=== PATIENT | male | born 1965 | race American Indian/Alaskan Native ===

== ENCOUNTER 2016-09-13 21:35 | Emergency (ER) | payer SELFPAY ==
[2016-09-13] MEDS ORDERED: NACL 0.9% 1000 ML 1,000 ML IV ONE (22:08)
--- NOTE | 2016-09-13 22:12 | Emergency Department Report ---
ED General Adult HPI - General Chief complaint: Weakness Stated complaint: WEAK Time Seen by Provider: 09/13/16 21:54 Source: patient, EMS (ems notes not available at time of chart dictation) Limitations: No Limitations - History of Present Illness Initial comments: This is a 51-year-old male. He is previously unknown to me. The patient reports a recent prolonged hospital stay at [place] for what sounds like bacteremia and numerous lower extremity abscesses. He then reports that he spent 30 days at [facility]. He reports that he was discharged yesterday. the patient is brought to the hospital by EMS today for generalized weakness. As per verbal report from EMS, patient had a blood pressure in the 80s. The patient denies headache, neck pain, chest pain, abdominal pain, shortness of breath, hematuria, hematemesis, bright red blood per rectum. He reports that he feels slightly better now. His symptoms worse with physical exertion. They decrease with rest. There is no chest pain. There is no shortness of breath. -: Gradual Consistency: now resolved Improves with: none Worsens with: none Associated Symptoms: malaise, weakness - Related Data Home Medications Medication Instructions Recorded Confirmed Last Taken Unobtainable 09/14/16 09/14/16 Unknown Allergies Allergy/AdvReac Type Severity Reaction Status Date / Time No Known Allergies Allergy Unverified 09/13/16 21:58 ED Review of Systems ROS: Stated complaint: WEAK Other details as noted in HPI Constitutional: malaise, weakness. denies: fever Eyes: denies: eye discharge ENT: denies: epistaxis Respiratory: denies: cough Cardiovascular: denies: chest pain Gastrointestinal: denies: abdominal pain Genitourinary: denies: dysuria Musculoskeletal: denies: myalgia Skin: denies: lesions, change in color Neurological: weakness. denies: numbness, paresthesias, confusion ED Past Medical Hx - Medications Home Medications: Home Medications Medication Instructions Recorded Confirmed Last Taken Type Unobtainable 09/14/16 09/14/16 Unknown History ED Physical Exam - General General appearance: alert, in no apparent distress - Head Head exam: Present: atraumatic, normocephalic - Eye Eye exam: Present: normal appearance, EOMI. Absent: nystagmus - ENT ENT exam: Present: normal exam, mucous membranes dry - Neck Neck exam: Present: normal inspection, full ROM. Absent: tenderness, meningismus - Respiratory Respiratory exam: Present: normal lung sounds bilaterally. Absent: respiratory distress, wheezes, rales, rhonchi, stridor, chest wall tenderness, accessory muscle use, decreased breath sounds, prolonged expiratory - Cardiovascular Cardiovascular Exam: Present: normal rhythm, tachycardia, normal heart sounds. Absent: systolic murmur, diastolic murmur, rubs, gallop - GI/Abdominal GI/Abdominal exam: Present: soft, normal bowel sounds. Absent: distended, tenderness, guarding, rebound, rigid, pulsatile mass - Rectal Rectal exam: Present: normal inspection, heme (-) stool - Extremities Exam Extremities exam: Present: normal inspection, full ROM, normal capillary refill , other (there is no lower extremity redness, pus, swelling. There is no crepitus. The compartments are soft. 2+ pulses noted in 4 extremities). Absent: pedal edema, joint swelling, calf tenderness - Back Exam Back exam: Present: normal inspection, full ROM. Absent: tenderness, CVA tenderness (R), CVA tenderness (L), muscle spasm, paraspinal tenderness, vertebral tenderness - Neurological Exam Neurological exam: Present: alert, oriented X3, other (Extraocular movements intact. Tongue midline. No facial droop. Facial sensation intact to light touch in the V1, V2, V3 distribution bilaterally. 5 and 5 strength in 4 extremities.. Sensation is intact to light touch in 4 extremities.). Absent: motor sensory deficit - Psychiatric Psychiatric exam: Present: normal affect, normal mood - Skin Skin exam: Present: warm, dry, intact, normal color. Absent: rash ED Course Vital Signs 09/13/16 09/13/16 09/13/16 21:45 22:30 22:37 Temperature 98.0 F 98 F Pulse Rate 102 H Respiratory 16 Rate Blood Pressure 130/87 Blood Pressure [Left] O2 Sat by Pulse 98 100 Oximetry 09/13/16 09/14/16 09/14/16 22:40 00:10 02:25 Temperature 98 F Pulse Rate 98 H 99 H 90 Respiratory 16 16 16 Rate Blood Pressure Blood Pressure 128/84 140/88 134/78 [Left] O2 Sat by Pulse 100 100 100 Oximetry - Reevaluation(s) Reevaluation #1: 09/13/16 23:12 differential diagnosis: Dehydration, GI bleed, urinary tract infection, pneumonia, electrolyte derangement, debility, general deconditioning Assessment and plan: 51-year-old male who had an episode of resolved generalized weakness, with hypotension with a blood pressure in the 80s. He is currently afebrile with reassuring vital signs, and unremarkable physical examination. He denies headache, neck pain, chest pain, abdominal pain and shortness of breath. Laboratory studies pending. X-ray of the chest not consistent with pneumonia. Reevaluation #2: 09/14/16 02:27 Patient has been observed in the ER for 5 hours. His vital signs has remained stable. He is able to walk with a steady gait. The patient reports not eating much today. His repeat physical examination is unremarkable. The patient reports that he feels much improved. Given clinical stability and improvement , normal physical exam, normal vital signs, normal laboratory studies, normal x- ray, I don't believe the patient has an emergent medical condition at this point in time that would require hospital admission. The patient will be discharged at this point in time. The patient is encouraged to withhold any antihypertensive medications that he is taking, until he follows up with a primary care doctor. 09/16/16 20:23 ED Medical Decision Making - Lab Data Result diagrams: 09/13/16 22:18 09/13/16 22:18 Vital Signs 09/13/16 09/13/16 09/13/16 21:45 22:30 22:37 Temperature 98.0 F 98 F Pulse Rate 102 H Respiratory 16 Rate Blood Pressure 130/87 O2 Sat by Pulse 98 100 Oximetry Lab Results 09/13/16 09/13/16 09/13/16 Range/Units 21:46 22:18 22:18 WBC 8.6 (4.5-11.0) K/mm3 RBC 3.53 L (3.65-5.03) M/mm3 Hgb 11.3 L (11.8-15.2) gm/dl Hct 34.0 L (35.5-45.6) % MCV 96 H (84-94) fl MCH 32 (28-32) pg MCHC 33 (32-34) % RDW 14.6 (13.2-15.2) % Plt Count 203 (140-440) K/mm3 Lymph % (Auto) 14.2 (13.4-35.0) % Craven % (Auto) 7.7 H (0.0-7.3) % Eos % (Auto) 2.4 (0.0-4.3) % Baso % (Auto) 0.5 (0.0-1.8) % Lymph # 1.2 (1.2-5.4) K/mm3 Craven # 0.7 (0.0-0.8) K/mm3 Eos # 0.2 (0.0-0.4) K/mm3 Baso # 0.0 (0.0-0.1) K/mm3 Seg Neutrophils % 75.2 H (40.0-70.0) % Seg Neutrophils # 6.5 (1.8-7.7) K/mm3 POC Glucose 180 H (70-105) Magnesium 1.70 (1.7-2.3) mg/dL Total Creatine Kinase 44 L (55-170) units/L Troponin T 0.021 (0.00-0.029) ng/mL TSH (0.270-4.200) mlU/mL 09/13/16 Range/Units 22:18 WBC (4.5-11.0) K/mm3 RBC (3.65-5.03) M/mm3 Hgb (11.8-15.2) gm/dl Hct (35.5-45.6) % MCV (84-94) fl MCH (28-32) pg MCHC (32-34) % RDW (13.2-15.2) % Plt Count (140-440) K/mm3 Lymph % (Auto) (13.4-35.0) % Craven % (Auto) (0.0-7.3) % Eos % (Auto) (0.0-4.3) % Baso % (Auto) (0.0-1.8) % Lymph # (1.2-5.4) K/mm3 Craven # (0.0-0.8) K/mm3 Eos # (0.0-0.4) K/mm3 Baso # (0.0-0.1) K/mm3 Seg Neutrophils % (40.0-70.0) % Seg Neutrophils # (1.8-7.7) K/mm3 POC Glucose (70-105) Magnesium (1.7-2.3) mg/dL Total Creatine Kinase (55-170) units/L Troponin T (0.00-0.029) ng/mL TSH 0.307 (0.270-4.200) mlU/mL - EKG Data -: EKG Interpreted by Me EKG shows normal: sinus rhythm, axis, QRS complexes, ST-T waves - EKG Data When compared to previous EKG there are: previous EKG unavailable - Radiology Data Radiology results: image reviewed interpreted by me: X-ray the chest demonstrates right lower lobe scarring/atelectasis, otherwise no acute disease Critical care attestation.: If time is entered above; I have spent that time in minutes in the direct care of this critically ill patient, excluding procedure time. ED Disposition Clinical Impression: General medical exam Disposition: DISCHARGED TO HOME OR SELFCARE Is pt being admited?: No Does the pt Need Aspirin: No Condition: Good Additional Instructions: Follow up with a primary care doctor within the next [address] Kamran Ye is a local primary care doctor. The [facility] is a local medical clinic. Do not take any of your blood pressure medications, until you follow up with the primary care doctor and they instruct you do so. Return to the ER right away with fevers, chills, chest pain, shortness of breath, intractable nausea or vomiting, confusion, inability to tolerate liquid feeds, severe pain. Referrals: PRIMARY MD TED [Primary Care Provider] - 3-5 Days KAMRAN YE MD [Staff Physician] - 3-5 Days [facility] [Provider Group] - 3-5 Days
[2016-09-13 22:38] LABS: Basophils % (Auto) 0.5 % (0.0-1.8); Eosinophils % (Auto) 2.4 % (0.0-4.3); Hemoglobin 11.3 gm/dl (11.8-15.2); Mean Corpuscular HGB Conc 33 % (32-34); Mean Corpuscular Hemoglobin 32 pg (28-32); Mean Corpuscular Volume 96 fl (84-94); Platelet Count 203 K/mm3 (140-440); Red Blood Count 3.53 M/mm3 (3.65-5.03); Red Cell Distribution Width 14.6 % (13.2-15.2); White Blood Count 8.6 K/mm3 (4.5-11.0)
[2016-09-13 22:57] LABS: Magnesium 1.7 mg/dL (1.7-2.3)
--- NOTE | 2016-09-13 23:36 | XRay Report ---
FINAL REPORT EXAM: XR CHEST 1V AP HISTORY: Weakness TECHNIQUE: upright single view chest PRIORS: None. FINDINGS: Cardiac and mediastinal contours are unremarkable. No focal pulmonary infiltrate is identified. No pleural fluid collection seen. Pulmonary vasculature is unremarkable. IMPRESSION: Negative single-view chest
[2016-09-14 00:01] LABS: Alanine Aminotransferase 8 units/L (7-56); Albumin 3.3 g/dL (3.9-5); Albumin/Globulin Ratio 0.9 %; Alkaline Phosphatase 101 units/L (35-129); Anion Gap 22 mmol/L; Blood Urea Nitrogen 25 mg/dL (9-20); Carbon Dioxide 22 mmol/L (22-30); Chloride 104.1 mmol/L (98-107); Glucose 155 mg/dL (75-100); Potassium 4.7 mmol/L (3.6-5.0); Sodium 143 mmol/L (137-145)
[2016-09-14 00:01] LABS: Bilirubin,Urine NEG (Negative); Blood,Urine LG (Negative); Ketones,Urine NEG (Negative); Leukocyte Esterase,Urine SM (Negative); Mucus,Urine FEW /HPF; Nitrite,Urine NEG (Negative); Protein,Urine <15 mg/dL mg/dL (Negative); Urobilinogen,Urine < 2.0 mg/dL (<2.0)
[2016-09-14 02:27] VITALS: BP 134/78
== END 2016-09-14 02:37 | disposition home or self-care (01) ==
LOC: ED 21:35
DX: R53.1 Weakness (principal); E86.0 Dehydration
CPT/HCPCS: 36415; 51701; 71010; 80053; 81001; 82271; 82550; 82962; 83735; 84443; 84484; 85025; 93005; 93010; 96360; 99285; J7030